=== PATIENT | female | born 2000 | race African-American/Black ===

== ENCOUNTER 2020-05-21 06:54 | Emergency (ER) | payer OTHER ==
[~2020-05-21] VITALS: Ht 157.5 cm; Wt 77.3 kg
[2020-05-21 07:03] VITALS: Ht 157.5 cm; Wt 77.3 kg
[2020-05-21] MEDS ORDERED: EFFEXOR75 MG PO (07:05)
[2020-05-21 07:28] LABS: BASOPHILS 0.2 % (0-2); EOSINOPHILS 0.1 % (0-7); HEMATOCRIT 35.1 % (36.0-48.0); HEMOGLOBIN 11.6 g/dL (12-16); IMMATURE GRANULOCYTES 0.3 % (0-5); LYMPHOCYTES 7.4 % (15-50); MCH 29.9 pg (26.0-34.0); MCV 90.5 fL (80.0-100.0); MEAN PLATELET VOLUME 10.1 fL (7.4-10.4); MONOCYTES 8.4 % (2-11); NEUTROPHILS 83.6 % (40-80); PLATELET COUNT 302 10x3/uL (130-400); RBC 3.88 10x6/uL (4.00-5.40); RDW 12.2 % (11.5-14.5); WBC 19.3 10x3/uL (4.8-10.8)
[2020-05-21 07:35] LABS: CALC OSMOLALITY 266 mosm/kg (275-300); CALCIUM 8.9 mg/dL (8.5-10.1); CARBON DIOXIDE 25.3 mmol/L (21.0-32.0); CHLORIDE - SERUM 101 mmol/L (98-107); CREATININE - SERUM 0.8 mg/dL (0.6-1.3); GLUCOSE 104 mg/dL (74-106); POTASSIUM - SERUM 3.6 mmol/L (3.5-5.1); SODIUM 134 mmol/L (136-145); UREA NITROGEN 9 mg/dL (7-18); eGFR NON AFRICAN AMERICAN > 90 mL/min (90-120)
[2020-05-21 07:41] LABS: ALBUMIN 3.7 g/dL (3.4-5.0); ALKALINE PHOSPHATASE 61 U/L (30-120); ALT (SGPT) 16 U/L (10-68); AMYLASE - SERUM 35 U/L (25-115); BILIRUBIN - TOTAL 0.46 mg/dL (0.2-1.3); LIPASE 63 U/L (73-393); PROTEIN - SERUM 7.5 g/dL (6.4-8.2)
[2020-05-21 07:43] LABS: HCG URINE NEGATIVE (NEGATIVE)
[2020-05-21 07:51] LABS: BILIRUBIN NEGATIVE (NEGATIVE); KETONE NEGATIVE (NEGATIVE); NITRITE NEGATIVE (NEGATIVE); UROBILINOGEN NORMAL mg/dL (< 2)
[2020-05-21 07:53] LABS: BACTERIA MODERATE /HPF (NONE SEEN); EPITHELIAL CELLS 0-5 /hpf (0-5)
[2020-05-21 07:54] LABS: WHITE CELLS - URINE 25-50 HPF (0-4)
[2020-05-21] MEDS ORDERED: KEFLEX500 MG PO (08:48)
[2020-05-21] MEDS ORDERED: MACROBID100 MG PO (08:48)
[2020-05-21] MEDS ORDERED: PHENAZOPYRIDIN200 MG PO (08:49)
[2020-05-21 09:37] VITALS: BP 169/68
== END 2020-05-21 09:38 | disposition home or self-care (01) ==
LOC: D.ER 06:54
PROVIDERS: Family Medicine
DX: N39.0 Urinary tract infection, site not specified (principal); N12 Tubulo-interstitial nephritis, not specified as acute or chronic; R10.9 Unspecified abdominal pain